=== PATIENT | male | born 1995 | race Caucasian/White ===

== ENCOUNTER 2021-06-01 09:22 | Emergency (ER) | payer BC | END 2021-06-01 11:23 | disposition short-term general hospital (02) | LOC: ER1 09:22 | DX: S41.112A Laceration without foreign body of left upper arm, initial encounter (principal); F17.210 Nicotine dependence, cigarettes, uncomplicated; Z23 Encounter for immunization; W26.8XXA Contact with other sharp object(s), not elsewhere classified, initial encounter | CPT/HCPCS: 73090; 90471; 90715; 96374; 96375; 99284; J0690; J1170 ==